=== PATIENT | female | born 1970 | race Native Hawaiian/Other Pacific Islander ===

== ENCOUNTER 2022-05-21 07:48 | Outpatient (CLI) | payer OTHER ==
[2022-05-21 08:04] LABS: PLATELET COUNT 261 K/uL (152-353)
[2022-05-21 08:55] LABS: POTASSIUM 3.9 mmol/L (3.6-5.2)
== END 2022-05-21 19:31 | disposition home or self-care (01) ==
LOC: LABW 07:48
PROVIDERS: ATTEND Internal Medicine
DX: Z00.00 Encounter for general adult medical examination without abnormal findings (principal)
CPT/HCPCS: 36415; 80053; 80061; 83036; 84443; 85027